=== PATIENT | female | born 1995 | race Caucasian/White ===

== ENCOUNTER 2018-06-22 23:09 | Emergency (ER) | payer SELFPAY ==
[2018-06-22] MEDS ORDERED: Adacel (T-DAP) 0.5 ML VIAL ONE (23:24)
[2018-06-22] MEDS ORDERED: Lidocaine 1% w/Epinephrine 1:100K 20 ML VIAL ONE (23:29)
--- NOTE | 2018-06-22 23:37 | CT ---
HEAD CT WITHOUT CONTRAST 06/22/18 COMPARISON: None. HISTORY: Injury, trauma, pain. TECHNIQUE: Serial axial CT imaging at 5 mm intervals from vertex through skull base with coronal and sagittal re formatted imaging. FINDINGS: There is partial opacification of the ethmoid air cells on the left anteriorly. The imaged paranasal sinuses and mastoid air cells are grossly unremarkable otherwise. There is a scalp laceration near t he vertex on the right in the frontal region. No intracranial hemorrhage, midline shift, mass effect, or ventricular enlargement. No associated calvarial fracture. IMPRESSION: Scalp laceration in the right frontal region. No associated fracture or intracranial hemorrhage. Results called to Dr. Tarango at 11:35 p.m., 06/22/18. Code CR POS: [email or web address]
--- NOTE | 2018-06-23 08:23 | RAD ---
PORTABLE CHEST 1 VIEW: Date: 06/22/18 Time: 1033 hours HISTORY: Trauma, chest pain. FINDINGS: Heart size is normal. Lungs are expanded without focal areas of consolidation, pneumothorax, or pleur al effusions. IMPRESSION: No acute process. POS: [facility]
== END 2018-06-23 01:41 | disposition home or self-care (01) ==
LOC: ERS 23:09
DX: S01.01XA Laceration without foreign body of scalp, initial encounter (principal); F41.9 Anxiety disorder, unspecified; F32.9 Major depressive disorder, single episode, unspecified; Z23 Encounter for immunization; F98.8 Other specified behavioral and emotional disorders with onset usually occurring in childhood and adolescence; Z79.899 Other long term (current) drug therapy; V43.52XA Car driver injured in collision with other type car in traffic accident, initial encounter
CPT/HCPCS: 12002; 70450; 71045; 90471; 90715; G0390; J2001